=== PATIENT | female | born 1960 | race Caucasian/White ===

== ENCOUNTER 2022-08-06 17:22 | Emergency (ER) | payer MEDICAID ==
[~2022-08-06] VITALS: Ht 147.3 cm; Wt 68.0 kg
[2022-08-06 17:32] VITALS: BP 155/93
[2022-08-06 21:29] LABS: BASOPHILS # (AUTO) 0.1 K/uL (0.00-0.22); BASOPHILS % (AUTO) 0.5 % (0.0-2.0); EOSINOPHILS # (AUTO) 0.1 K/uL (0-0.4); EOSINOPHILS % (AUTO) 0.5 % (0.0-4.0); HEMATOCRIT 43.1 % (36-48); HEMOGLOBIN 14.5 g/dL (12.0-16.0); LYMPHOCYTES # (AUTO) 1.8 K/uL (2.5-16.5); LYMPHOCYTES % (AUTO) 18.5 % (20.5-51.1); MEAN CORPUSCULAR HEMOGLOBIN 30 pg (27-31); MEAN CORPUSCULAR HGB CONC 34 g/dL (33-37); MEAN CORPUSCULAR VOLUME 88.7 fL (80-94); MONOCYTES # (AUTO) 0.6 K/uL (0.8-1.0); MONOCYTES % (AUTO) 5.7 % (1.7-9.3); NEUTROPHILS # (AUTO) 7.4 K/uL (1.8-7.7); NEUTROPHILS % (AUTO) 74.8 % (42.2-75.2); PLATELET COUNT (AUTO) 191 K/uL (140-450); RED BLOOD CELL COUNT(AUTO) 4.86 MIL/uL (4.20-5.40); RED CELL DISTRIBUTION WIDTH 14.7 % (11.6-13.7); WHITE BLOOD COUNT (AUTO) 9.9 K/uL (4.8-10.8)
[2022-08-06 21:51] LABS: ALBUMIN 3.9 g/dL (3.4-5.0); ANION GAP 11.6 (8-16); CARBON DIOXIDE 30.6 mmol/L (21-32); CREATININE 0.7 mg/dL (0.6-1.3); POTASSIUM 4.2 mmol/L (3.5-5.1); TOTAL BILIRUBIN 0.4 mg/dL (0.0-1.0)
[2022-08-06 22:25] LABS: APPEARANCE,URINE SL CLOUDY (CLEAR); BILIRUBIN,URINE NEGATIVE (NEGATIVE); BLOOD, URINE 2+ (NEGATIVE); COLOR,URINE YELLOW (YELLOW); LEUKOCYTE ESTERASE ,URINE NEGATIVE (NEGATIVE); NITRITE, URINE NEGATIVE (NEGATIVE); UGLUCOSE NEGATIVE (NEGATIVE)
[2022-08-06 22:39] LABS: RBC,URINE 0-5 /HPF (0-5); WBC,URINE 0-5 /HPF (0-5)
--- NOTE | 2022-08-07 00:18 | NUR ---
Dr. Lane examining patient.
--- NOTE | 2022-08-07 00:18 | NUR ---
FIRST CONTACT WITH PT. DR. MICHAELS AT BEDSIDE FOR EXAM.
[2022-08-07] MEDS ORDERED: KETOROLAC 30 MG/ML VIAL IM ONE (00:25)
[2022-08-07] MEDS ORDERED: HYDROcodone/APAP 5/325 MG 1 TAB TAB PO ONE (00:25)
--- NOTE | 2022-08-07 00:34 | NUR ---
PT TAKEN TO CT
--- NOTE | 2022-08-07 00:44 | NUR ---
PT RETURN FROM CT
--- NOTE | 2022-08-07 02:00 | NUR ---
PT RESTING, NO S/S OF DISTRESS NOTED. PT HAS IMPROVEMENT IN PAIN. PT APPEARS TO BE SLEEPING AND VERY AROUSABLE.
[2022-08-07] MEDS ORDERED: NAPR-54 PO (05:09)
[2022-08-07] MEDS ORDERED: CEPH-588 PO (05:10)
[2022-08-07 05:38] VITALS: BP 132/68
--- NOTE | 2022-08-07 05:38 | NUR ---
Patient discharged with v/s stable. Written and verbal after care instructions given and explained. Patient verbalized understanding. RX OF KEFLEX AND NAPROSYN SENT ELECTRONICALLY Ambulatory with steady gait. All questions addressed prior to discharge. Advised to follow up with PMD.
== END 2022-08-07 05:38 | disposition home or self-care (01) ==
LOC: MED 17:22
DX: R82.71 Bacteriuria (principal); R10.32 Left lower quadrant pain; Z79.1 Long term (current) use of non-steroidal anti-inflammatories (NSAID); Z79.2 Long term (current) use of antibiotics
CPT/HCPCS: 36415; 74176; 80053; 81001; 83690; 85025; 87086; 96372; 99285; J1885